=== PATIENT | male | born 2000 | race Caucasian/White ===

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

== ENCOUNTER → 2022-02-07 12:43 | Outpatient (BNVA) | payer MEDICAID, SELFPAY | PROVIDERS: PCP Pediatrics Adolescent Medicine; Visit Provider Registered Nurse Neonatal Intensive Care | DX: J02.9 Acute pharyngitis, unspecified (principal); H66.93 Otitis media, unspecified, bilateral | CPT/HCPCS: 87880 ==

== ENCOUNTER 2023-05-03 12:45 | Emergency (ER) | payer MEDICAID, SELFPAY ==
[2023-05-03 12:56] VITALS: BP 155/87; PULSE 102; RESP 17; TEMP 36.6; O2SAT 96
--- NOTE | 2023-05-03 13:43 | ED_ITS ---
HPI - Headache 2 General: Chief Complaint: Headache Stated Complaint: Headache Time Seen by Provider: 05/03/23 13:06 Source: patient Mode of arrival: ambulatory Limitations: no limitations History of Present Illness: Patient is a 23-year-old male who presents to ED today after he was referred here by Dr. Crane at the walk-in clinic for evaluation of a headache. Patient tells me he began developing a headache yesterday afternoon. He denies thunderclap headache. He states yesterday he also began running fevers of 100.6 and having body aches. He states over the past 2 days he has had a productive cough and nasal congestion. He denies neck pain/stiffness. No visual changes. He is ambulating normally. No neurological deficits. Currently he rates his pain at a 9/10. He does arrive hypertensive. Patient tells me he has had multiple occasions of elevated blood pressure readings. Previous blood pressures all the back to 2019 were reviewed. MD elicited complaint: headache Onset (ago): day(s) (yesterday afternoon) Onset description: gradually Severity: severe Pain scale (0-10): 9 Exacerbating factors: light Relieving factors: nothing Associated symptoms: Reports no associated symptoms and fever(s); Deny chest pain, confusion, lightheadedness, malaise, nausea, pre-syncope, rash, syncope or vomiting Treatments prior to arrival: none Review of Systems 2 Const: Reports: fever(s), chills and body aches; Denies: fatigue or malaise Eyes: Denies: change in vision, blurry vision, blind spots, photophobia, floaters or seeing flashes ENMT: Reports: nasal discharge, nasal congestion and sinus pain; Denies: throat pain, odynophagia, ear or mastoid pain or epistaxis Card: Denies: chest pain, palpitations, irregular heart rhythm, edema, swelling of feet/ankles, lightheadedness, syncope, pre-syncope, dyspnea on exertion, orthopnea, leg pain with exertion or acrocyanosis Resp: Reports: productive cough, change in phlegm color and chest congestion; Denies: dyspnea, wheezing, stridor, pain on inspiration or hemoptysis GI: Denies: abdominal pain, nausea, vomiting or diarrhea : Denies: flank pain, difficulty urinating, dysuria, urinary frequency, urinary urgency or urinary hesitancy Musc: Denies: neck pain, back pain, extremity pain, extremity swelling, joint pain or joint swelling Skin/Breast: Denies: rash Neuro: Reports: headache(s); Denies: numbness in extremities, weakness in extremities, sensory changes, lack of coordination, difficulty walking, frequent falls, dizziness, vertigo, confusion, behavioral changes, Slurred speech present, difficulty communicating thoughts or seizure-like activity PFSH ED 2 PFSH: Social History Smoking and tobacco/nicotine status: never used tobacco/nicotine Physical Exam 2 Const: COMMON NORMALS: no acute distress, average body habitus, patient oriented x3, no limitations, alert and well nourished GENERAL APPEARANCE: c ooperative ORIENTATION/CONSCIOUSNESS: Yes awake, Yes oriented to person, Yes oriented to place and Yes oriented to time HENMT: COMMON NORMALS: normocephalic, atraumatic, hearing grossly normal bilaterally, external ears normal, EAC's normal, TM's normal bilaterally, Normal external nose present, Normal nasal mucous membranes and turbinates present, moist oral mucous membranes and oropharynx normal HEAD & SCALP: normal to inspection, normocephalic and atraumatic FACE & SINUS: normal facial exam, sinuses nontender and face symmetric NOSE: Normal external nose present and Normal nasal mucous membranes and turbinates present EXTERNAL EAR: Yes external ears normal EXTERNAL AUDITORY CANAL: EAC's normal TYMPANIC MEMBRANE: TM's normal bilaterally MOUTH: Normal oral and palatal mucosa present and lip normal THROAT: posterior oropharynx normal and tonsils normal Eye: COMMON NORMALS: Equal, round and reactive pupils present and EOMs intact bilaterally GENERAL EYE: appearance normal, both eyes and all related structures and normal light reflex PUPIL: Yes Equal, round and reactive pupils present DIRECT OPHTHALMOSCOPY: Yes normal light reflex Neck/C-Spine: COMMON NORMALS: full ROM, no lymphadenopathy, no meningeal signs, no JVD and No carotid bruits GENERAL: Yes normal visual inspection Chest: COMMONS NORMALS: normal inspection of the chest and normal palpation of entire chest wall Resp: COMMON NORMALS: normal respiratory effort and clear to auscultation bilaterally AUSCULTATION: clear to auscultation bilaterally Cardio: COMMON NORMALS: no JVD, regular rate and regular rhythm RATE: r egular rate RHYTHM: regular rhythm GI: COMMON NORMALS: Normal to inspection, nondistended, normoactive bowel sounds present, Soft to palpation and non-tender PALPATION: Yes Soft to palpation : COMMON NORMALS: Yes no CVA tenderness BLADDER/KIDNEY EXAM: Yes no CVA tenderness Back/Pelvis: COMMON NORMALS: no CVA tenderness and thoracic and lumbar spine normal to inspection Extremity: COMMON NORMALS: normal to inspection GENERAL: Yes normal exam except as noted Neuro: MERCEDES COMA SCALE: document GCS findings [place] coma scale eye opening: Spontaneous Mercedes coma scale verbal response: Orientated [place] coma scale motor response: Obey commands Mercedes coma scale total score: 15 COMMON NORMALS: patient oriented x3, CN's II-XII intact bilaterally, moves all extremities, no focal motor deficits, no sensory deficits noted and gait normal SENSORIUM/ORIENTATION: Yes alert, Yes oriented to person, Yes oriented to place and Yes oriented to time MENINGEAL SIGNS: Yes no meningeal signs Skin: COMMON NORMALS: no rashes or lesions noted GENERAL SKIN EXAM: no rashes or lesions noted Course 2 Vital Signs: Vital signs: Vital Signs Temperature 97.8 F 05/03/23 12:56 Pulse Rate 96 05/03/23 15:13 Respiratory Rate 16 05/03/23 15:13 Blood Pressure 127/75 05/03/23 15:13 Pulse Oximetry 95 05/03/23 15:13 Oxygen Delivery Me thod Room Air 05/03/23 14:59 MDM - Headache Medical Decision Making Patient is a 23-year-old male here after he was seen at the walk-in clinic and referred to the emergency department for the further evaluation of a headache. According to walk-in provider notes, he mentioned it was the worst headache of his life thus prompting the ED evaluation. Upon my assessment patient states headache started yesterday. No thunderclap headache. It did not reach maximum intensity within an hour. He also reported symptoms such as low-grade fevers, body aches, cough, congestion starting around the same time that the fever started. He has absolutely no neck pain or stiffness. He has no symptoms on the [place] Subarachnoid Hemorrhage Rule including greater age than 40, neck pain/stiffness, limited neck flexion on examination, witnessed loss of consciousness, onset during exertion, thunderclap headache. He arrives to the ED in no acute distress. Blood pressure is slightly elevated but resolved here without intervention. He has had elevated blood pressure readings previously. Patient's blood work overall unremarkable. Mild elevations to his liver enzymes. This sometimes can be seen with COVID which he did test positive for. Influenza is negative. At this time I have zero suspicion for a subarachnoid hemorrhage or other intracranial emergency. There is no indication for CT head, CTA, or lumbar puncture at this time. Headache most likely related to his COVID diagnosis. Return to ED precautions given. Differential Diagnosis Likely migraine and headache Medical Records I reviewed the patient's medical records. Lab Data I reviewed the patient's lab results. 05/03/23 14:23 05/03/23 14:23 Laboratory Results WBC 13.50 10^3/uL (3.29-11.43) H 05/03/23 14:23 RBC 5.05 10^6/uL (3.85-5.65) 05/03/23 14:23 Hgb 15.40 g/dL (11.27-16.99) 05/03/23 14:23 Hct 45.0 % (37-53) 05/03/23 14:23 MCV 89.1 fl (82-101) 05/03/23 14:23 MCH 30.5 pg (27-33) 05/03/23 14:23 MCHC 34.2 g/dL (30-55) 05/03/23 14:23 RDW 12.3 % (12.1-15.1) 05/03/23 14:23 Plt Count 217 10^3/cmm (157-399) 05/03/23 14:23 MPV 10.3 fL (7.4-10.4) 05/03/23 14:23 Neut % (Auto) 85.6 % 05/03/23 14:23 Lymph % (Auto) 8.4 % 05/03/23 14:23 Cotton % (Auto) 5.0 % 05/03/23 14:23 Eos % (Auto) 0.2 % 05/03/23 14:23 Baso % (Auto) 0.1 % 05/03/23 14:23 Neut # (Auto) 11.55 10^3/uL (1.8-7.7) H 05/03/23 14:23 Lymph # (Auto) 1.1 10^3/uL (0.8-4.8) 05/03/23 14:23 Cotton # (Auto) 0.7 10^3/uL (0.2-0.9) 05/03/23 14:23 Eos # (Auto) 0.0 10^3/uL (0.0-0.8) 05/03/23 14:23 Baso # (Auto) 0.0 10^3/uL (0.0-0.1) 05/03/23 14:23 Nucleated RBC % (auto) 0 % 05/03/23 14:23 Nucleated RBCs # 0.0 /100WBC 05/03/23 14:23 Sodium 134 mmol/L (136-145) L 05/03/23 14:23 Potassium 3.9 mmol/L (3.5-5.1) 05/03/23 14:23 Chloride 98 mmol/L (98-107) 05/03/23 14:23 Carbon Dioxide 23 mmol/L (22-29) 05/03/23 14:23 Anion Gap 16.9 (5-19) 05/03/23 14:23 BUN 16 mg/dL (6-20) 05/03/23 14:23 Creatinine 0.8 mg/dL (0.7-1.2) 05/03/23 14:23 GFR Calculation 122.0 mL/min (90-130) 05/03/23 14:23 Glucose 136 mg/dL (65-115) H 05/03/23 14:23 Calculated Osmolality 281 mOsm/kg (285-295) L 05/03/23 14:23 Calcium 10.0 mg/dL (8.5-10.5) 05/03/23 14:23 Total Bilirubin 0.8 mg/dL (0.15-1.2) 05/03/23 14:23 AST 58 U/L (0-40) H 05/03/23 14:23 ALT 128 U/L (0-41) H 05/03/23 14:23 Alkaline Phosphatase 161 U/L (40-130) H 05/03/23 14:23 C-Reactive Protein 15.1 mg/L (0.0-4.9) H 05/03/23 14:23 Total Protein 8.4 g/dL (6.6-8.7) 05/03/23 14:23 Albumin 4.6 g/dL (3.5-5.2) 05/03/23 14:23 Globulin 3.8 g/dL (1.3-4.6) 05/03/23 14:23 Influenza Type A Ag negative (Negative) 05/03/23 14:23 Influenza Type B Ag negative (Negative) 05/03/23 14:23 SARS-CoV-2 Ag (Rapid) positive (Negative) H 05/03/23 14:23 No radiology studies performed this visit Discharge Plan Discharge Patient Disposition: Home Clinical Impression: COVID-19 Condition: Stable Prescriptions: No Action No Known Home Medications Discharge Orders: Discharge ED (Routine); Ordered 05/03/23 Ordered By: Radha Simmons Referrals: Luly Robertson MD [Primary Care Provider] - Patient Instructions: COVID-19 (Coronavirus Disease 2019) (ED) Coding Level of Care Code ED Analytical Research Program Manager for Ginger Verdugo
[2023-05-03 13:46] VITALS: BP 153/105; PULSE 102; RESP 15; O2SAT 97
[2023-05-03] MEDS: sodium chloride 0.9% 1,000 ML 999 ML IV (14:36)
[2023-05-03 14:55] LABS: Basophils % 0.1 %; Eosinophils % 0.2 %; Lymphocytes # 1.1 10^3/uL (0.8-4.8); Lymphocytes % 8.4 %; Mean Corpuscular HGB Conc 34.2 g/dL (30-55); Mean Corpuscular Hemoglobin 30.5 pg (27-33); Mean Corpuscular Volume 89.1 fl (82-101); Mean Platelet Volume 10.3 fL (7.4-10.4); Monocytes # 0.7 10^3/uL (0.2-0.9); Neutrophils # 11.55 10^3/uL (1.8-7.7); Neutrophils % 85.6 %; Nucleated Red Blood Cells % 0 %; Platelet Count 217 10^3/cmm (157-399); Red Blood Count 5.05 10^6/uL (3.85-5.65); Red Cell Distribution Width 12.3 % (12.1-15.1)
[2023-05-03 14:59] VITALS: BP 133/75; PULSE 99; RESP 15; O2SAT 95
[2023-05-03 14:59] LABS: Influenza A by IFA negative (Negative); Influenza B by IFA negative (Negative)
[2023-05-03 15:00] LABS: Alanine Aminotransferase 128 U/L (0-41); Albumin Level 4.6 g/dL (3.5-5.2); Alkaline Phosphatase 161 U/L (40-130); Anion Gap 16.9 (5-19); Aspartate Amino Transferase 58 U/L (0-40); Blood Urea Nitrogen 16 mg/dL (6-20); C Reactive Protein 15.1 mg/L (0.0-4.9); Carbon Dioxide 23 mmol/L (22-29); Chloride 98 mmol/L (98-107); Creatinine Clr Calc Pharmacy 173.8524; Globulin 3.8 g/dL (1.3-4.6); Glucose 136 mg/dL (65-115); Osmolality Calculated 281 mOsm/kg (285-295); Potassium 3.9 mmol/L (3.5-5.1); Sodium 134 mmol/L (136-145); Total Bilirubin 0.8 mg/dL (0.15-1.2); Total Protein 8.4 g/dL (6.6-8.7)
[2023-05-03 15:02] LABS: SARS Covid-2 Antigen positive (Negative)
[2023-05-03 15:13] VITALS: BP 127/75; PULSE 96; RESP 16; O2SAT 95
[2023-05-03 15:15] LABS: Slide Review Slide Review Perform
== END 2023-05-03 15:14 | disposition home or self-care (01) ==
PROVIDERS: Emergency Provider Physician Assistant; PCP Pediatrics Adolescent Medicine
DX: U07.1 COVID-19 (principal)
CPT/HCPCS: 80053; 85025; 86140; 87426; 87804; 96360; 99284; J7030

== ENCOUNTER 2024-08-17 00:04 | Emergency (ER) | payer SELFPAY ==
[2024-08-17 00:11] VITALS: BP 152/95; PULSE 113; RESP 18; TEMP 37.1; O2SAT 100
--- NOTE | 2024-08-17 00:14 | ECG_ITS ---
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
== END 2024-08-17 03:39 | disposition left against medical advice (07) ==
PROVIDERS: Emergency Provider Family Medicine
DX: R00.0 Tachycardia, unspecified (principal); R94.31 Abnormal electrocardiogram [ECG] [EKG]
CPT/HCPCS: 93005